=== PATIENT | female | born 1965 | race African-American/Black ===

== ENCOUNTER 2016-07-25 14:03 | Emergency (ER) | payer BC ==
[~2016-07-25] VITALS: Ht 160 cm; Wt 75.9 kg
[~2016-07-25 14:03] MED LIST: AFRI0.055; AUGM875T PO; MUCI600T PO; SUDA120T3 PO; high blood pressure
[2016-07-25 14:05] VITALS: BP 168/97; PULSE 97; RESP 15; TEMP 98; O2SAT 98
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
--- NOTE | 2016-07-25 17:06 | RADRPT ---
EXAM DATE/TIME: 07/25/2016 16:50 [place] COMPARISON: No previous studies available for comparison. INDICATIONS : Headaches with dizziness. RADIATION DOSE: 56.77 CTDIvol (mGy) MEDICAL HISTORY : Cardiovascular disease. Hypertension. SURGICAL HISTORY : None. ENCOUNTER: Initial ACUITY: 2 days PAIN SCALE: 5/10 LOCATION: Bilateral cranial TECHNIQUE: Multiple contiguous axial images were obtained of the head. Using automated exposure control and adj ustment of the mA and/or kV according to patient size, radiation dose was kept as low as reasonably a chievable to obtain optimal diagnostic quality images. FINDINGS: CEREBRUM: The ventricles are normal for age. No evidence of midline shift, mass lesion, hemorrhage or acute in farction. No extra-axial fluid collections are seen. POSTERIOR FOSSA: The cerebellum and brainstem are intact. The 4th ventricle is midline. The cerebellopontine angle i s unremarkable. EXTRACRANIAL: The visualized portion of the orbits is intact. SKULL: The calvaria is intact. No evidence of skull fracture. CONCLUSION: Normal examination. No evidence of acute infarct, hemorrhage, mass or edema. Fly Goncalves MD on July 25, 2016 at 17:03 Board Certified Radiologist. This report was verified electronically.
[2016-07-25 17:29] VITALS: BP 170/89; PULSE 79; PULSE 84; RESP 20; TEMP 98; O2SAT 97; O2SAT 98
[2016-07-25 17:31] LABS: AUTOMATED NEUTROPHIL # 1.7 TH/MM3 (1.8-7.7); BASOPHIL % 0.9 % (0.0-2.0); EOSINOPHIL # 0.2 TH/MM3 (0-0.4); EOSINOPHIL % 4.8 % (0.0-4.0); HEMATOCRIT 38.4 % (35.0-46.0); HEMO FLAGS DIFF FINAL; LYMPH % 52.6 % (9.0-44.0); LYMPHOCYTE # 2.6 TH/MM3 (1.0-4.8); MEAN CELL VOLUME 93.4 FL (80.0-100.0); MEAN CORPUSCULAR HEMOGLOBIN 32.6 PG (27.0-34.0); MEAN CORPUSCULAR HGB CONC 34.9 % (32.0-36.0); MONO % 7.9 % (0.0-8.0); NEUT % 33.8 % (16.0-70.0); PLATELET COUNT 234 TH/MM3 (150-450); RED BLOOD COUNT 4.11 MIL/MM3 (4.00-5.30); RED CELL DISTRIBUTION WIDTH 15.5 % (11.6-17.2); WHITE BLOOD COUNT 4.9 TH/MM3 (4.0-11.0)
[2016-07-25 17:38] VITALS: BP 170/89; PULSE 77; RESP 20; TEMP 98; O2SAT 98
[2016-07-25 17:46] LABS: BLOOD, URINE NEG (NEG); COMMENT (UR) CULT NOT INDICATED; CULTURE IF INDICATED CULT NOT INDICATED; GLUCOSE,URINE NEG (NEG); HYALINE CAST, URINE 1 /lpf (RARE); KETONE, URINE NEG (NEG); MUCUS URINE FEW /lpf (OCC); NITRITE,URINE NEG (NEG); PH, URINE 5.5 (5.0-8.5); SQUAMOUS EPITHELIAL CELL URINE 1 /hpf (0-5); URINE COLOR YELLOW (YELLW/STRAW)
[2016-07-25] MEDS ORDERED: MOBI15TA PO (18:54)
[2016-07-25 19:34] LABS: ANION GAP 5 MEQ/L (5-15); AST (GOT) 64 U/L (15-37); BICARBONATE 31.2 MEQ/L (21.0-32.0); BLOOD UREA NITROGEN 13 MG/DL (7-18); CHLORIDE 105 MEQ/L (98-107); GLOMERULAR FILTRATION RATE 115 ML/MIN (>89); SODIUM (NA) 141 MEQ/L (136-145)
--- NOTE | 2016-07-25 19:34 | PD ---
Data Data Last Documented VS Vital Signs Date Time Temp Pulse Resp B/P Pulse Ox O2 Delivery O2 Flow Rate FiO2 07/25/16 17:38 98.0 77 20 170/89 98 Room Air Orders Electrocardiogram (07/25/16 16:39) Complete Blood Count With Diff (07/25/16 16:39) Comprehensive Metabolic Panel (07/25/16 16:39) Urinalysis - C+S If Indicated (07/25/16 16:39) Ct Brain W/O Iv Contrast(Rout) (07/25/16 16:39) Iv Access Insert/Monitor (07/25/16 16:39) Ecg Monitoring (07/25/16 16:39) Oximetry (07/25/16 16:39) Acetaminophen (Tylenol) (07/25/16 20:00) Labs Laboratory Tests Test 07/25/16 07/25/16 17:15 19:10 White Blood Count 4.9 TH/MM3 Red Blood Count 4.11 MIL/MM3 Hemoglobin 13.4 GM/DL Hematocrit 38.4 % Mean Corpuscular Volume 93.4 FL Mean Corpuscular Hemoglobin 32.6 PG Mean Corpuscular Hemoglobin 34.9 % Concent Red Cell Distribution Width 15.5 % Platelet Count 234 TH/MM3 Mean Platelet Volume 8.9 FL Neutrophils (%) (Auto) 33.8 % Lymphocytes (%) (Auto) 52.6 % Monocytes (%) (Auto) 7.9 % Eosinophils (%) (Auto) 4.8 % Basophils (%) (Auto) 0.9 % Neutrophils # (Auto) 1.7 TH/MM3 Lymphocytes # (Auto) 2.6 TH/MM3 Monocytes # (Auto) 0.4 TH/MM3 Eosinophils # (Auto) 0.2 TH/MM3 Basophils # (Auto) 0.0 TH/MM3 CBC Comment DIFF FINAL Differential Comment Urine Color YELLOW Urine Turbidity CLEAR Urine pH 5.5 Urine Specific [place] 1.029 Urine Protein 30 mg/dL Urine Glucose (UA) NEG mg/dL Urine Ketones NEG mg/dL Urine Occult Blood NEG Urine Nitrite NEG Urine Bilirubin NEG Urine Urobilinogen 2.0 MG/DL Urine Leukocyte Esterase SMALL Urine RBC 1 /hpf Urine WBC 2 /hpf Urine Squamous Epithelial 1 /hpf Cells Urine Hyaline Casts 1 /lpf Urine Mucus FEW /lpf Microscopic Urinalysis Comment CULT NOT INDICATED Sodium Level 141 MEQ/L Potassium Level 4.2 MEQ/L Chloride Level 105 MEQ/L Carbon Dioxide Level 31.2 MEQ/L Anion Gap 5 MEQ/L Blood Urea Nitrogen 13 MG/DL Creatinine 0.65 MG/DL Estimat Glomerular Filtration 115 ML/MIN Rate Random Glucose 98 MG/DL Calcium Level 8.8 MG/DL Total Bilirubin 0.3 MG/DL Aspartate Amino Transf 64 U/L (AST/SGOT) Alanine Aminotransferase 79 U/L (ALT/SGPT) Alkaline Phosphatase 70 U/L Total Protein 8.1 GM/DL Albumin 3.7 GM/DL [facility] Medical Record Reviewed: Yes Supervised Visit with BENJIE: No Interpretation(s) Last Impressions Head CT 07/25/16 1639 Signed Impressions: Service Date/Time: Monday, July 25, 2016 16:50 - CONCLUSION: Normal examination. No evidence of acute infarct, hemorrhage, mass or edema. Fly Goncalves MD Narrative Course During the course of the patients emergency department visit, the patients history, examination, and differential diagnosis were reviewed with the patient. The patient had IV access obtained and blood work sent for analysis. The patient was placed on a tile layer supervisor with oximetry and blood pressure monitoring. An EKG was done on arrival. The patient's EKG shows a sinus rhythm heart rate of 79, no acute ST segment elevation or depression, T waves are noted to be inverted in V1, lead 3. The patient was initially evaluated by Dr. Choudhary. He requested that I review the patient's electrolytes. He anticipated that the patient will be able to be discharged home with a prescription for Motrin back. The patients laboratory studies were reviewed and remarkable for a CBC that shows a white count of 4.9, hemoglobin 13.4, platelets 234 with 52.6 lymphocytes suggesting a viral syndrome which Dr. Choudhary was concerned that the patient may be experiencing. Urinalysis is unremarkable. CMP is remarkable for slight elevation of her AST and ALT, ALT slightly elevated compared to the AST. A review of the electronic medical record reveals that this has been present previously. I see no evidence of a viral hepatitis panel being done previously. The patient will be given an outpatient lab slip to repeat the LFTs , due to a viral hepatitis panel and a sedimentation rate and to follow-up with a coatings inspector as her LFTs have increased compared to previously. Radiology studies were reviewed and remarkable for a CT scan of the brain shows no acute abnormality. The patient is resting comfortably and feels better, is alert and in no distress. The patients results and examination findings were discussed with the patient. The repeat examination is unremarkable and benign. The history, exam, diagnostic testing, and current condition do not suggest any significant pathology to warrant further testing, continued ED treatment, admission, or surgical evaluation at this point. The vital signs have been stable. The patient does not have uncontrollable pain, intractable vomiting, or other significant symptoms. The patient's condition is stable and appropriate for discharge. The patient will pursue further outpatient evaluation with a primary care physician or other designated or consulting physician as indicated in the discharge instructions. The patient expressed understanding and was agreeable with this plan. Diagnosis Primary Impression: Neuralgia Additional Impression: Elevated liver enzymes Referrals: Stephanie Turpin MD 1 week Primary Care Physician 3 days Patient Instructions: General Instructions Additional Instruction: Mobic as needed for pain. Follow-up with personal physician. Return if worse. The patient is noted on blood work to have elevated liver enzymes, AST and ALT. The patient is given an outpatient lab slip to repeat these in one week and follow-up with a coatings inspector. The patient was also instructed to have a viral hepatitis panel done in 1 week as well as a sedimentation rate. Med/Other Pt SpecificInfo: Prescription(s) given Scripts Meloxicam (Mobic)15 Mg Tab15 Mg PO DAILY #20 TAB Prov:Gene Choudhary MD 07/25/16 Disposition: 01 DISCHARGE HOME Condition: Stable Leila Muller MD Jul 25, 2016 19:33
[2016-07-25 19:35] LABS: POTASSIUM 4.2 MEQ/L (3.5-5.1)
[2016-07-25 19:47] LABS: ALKALINE PHOSPHATASE 70 U/L (45-117); ALT (GPT) 79 U/L (10-53); TOTAL BILIRUBIN ADULT 0.3 MG/DL (0.2-1.0)
[2016-07-25] MEDS ORDERED: ACETAMINOPHEN 325 MG TAB PO ONE (20:00)
--- NOTE | 2016-07-26 11:45 | EKG ---
Date Performed: 07/25/2016 Time Performed: 17:07:31 PTAGE: 51 years EKG: Sinus rhythm NORMAL ECG PREVIOUS TRACING : 02/28/2011 06.11 DOCTOR: Agustin Quiroz Interpretating Date/Time 07/26/2016 11:39:31
== END 2016-07-25 20:58 | disposition home or self-care (01) ==
LOC: NEPC 14:03
DX: M79.2 Neuralgia and neuritis, unspecified (principal); R74.8 Abnormal levels of other serum enzymes
CPT/HCPCS: 70450; 80053; 81001; 85025; 93005

== ENCOUNTER → 2016-07-26 | Outpatient (CLI) | payer BC ==
[~2016-07-26] MED LIST changes: +MOBI15TA PO
[2016-07-26 10:08] LABS: INDIRECT BILIRUBIN 0.3 MG/DL (0.0-0.8); TOTAL BILIRUBIN ADULT 0.4 MG/DL (0.2-1.0)
== END ==
LOC: CLAB 09:03
PROVIDERS: ATTEND Hospitalist
DX: E78.4 Other hyperlipidemia (principal)
CPT/HCPCS: 36415; 80074; 80076; 85652

== ENCOUNTER 2017-09-10 22:55 | Emergency (ER) | payer BC ==
[~2017-09-10] VITALS: Ht 167.6 cm; Wt 77.0 kg
[2017-09-10 23:04] VITALS: BP 152/99; PULSE 76; RESP 20; TEMP 98.4
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
== END 2017-09-10 23:41 | disposition home or self-care (01) ==
LOC: NEPD 22:55
DX: S80.12XA Contusion of left lower leg, initial encounter (principal); W01.0XXA Fall on same level from slipping, tripping and stumbling without subsequent striking against object, initial encounter
CPT/HCPCS: 99282

== ENCOUNTER 2017-09-28 17:38 | Emergency (ER) | payer BC ==
[~2017-09-28] VITALS: Ht 165.1 cm; Wt 77.0 kg
[2017-09-28 18:17] VITALS: BP 174/91; PULSE 76; RESP 19; TEMP 97.2; O2SAT 98
--- NOTE | 2017-09-28 20:07 | PD ---
HPI Chief Complaint: Pain: Acute or Chronic Time Seen by Provider: 19:58 Travel History International Travel<30 days: No Contact w/Intl Traveler<30days: No Traveled to known affect area: No History of Present Illness HPI 52-year-old black female presents emergency department with complaints of lower back and left leg pain [place]. She states that she had stepped on uneven ground into a hole causing her to fall onto her left knee. She was seen in the emergency department the day of the accident. She had x-rays performed and she was diagnosed with a contusion. She states that she has had persistent pain. She states the pain goes from her foot up into her left hip and left lower back. Pain is moderate. Worse with movement. Some relief with remaining still. She has not followed up with anyone since the accident. She only takes Goody powders on occasion. She denies any acute bowel or bladder changes. History Past Medical Histgory Narrative Medical Hypertension, hypothyroidism Tetanus Vaccination: > 5 Years Menopausal: No Hx Cancer: No Social History Alcohol Use: No Tobacco Use: No Allergies-Medications (Allergen,Severity, Reaction): Coded Allergies: No Known Allergies (Verified Adverse Reaction, Unknown, 09/10/17) Reported Meds & Prescriptions Reported Meds & Active Scripts Active No Active Prescriptions or Reported Medications Review of Systems General / Constitutional: No: Fever Eyes: No: Visual changes HENT: No: Headaches Cardiovascular: No: Chest Pain or Discomfort Respiratory: No: Shortness of Breath Gastrointestinal: No: Abdominal Pain Genitourinary: No: Dysuria Musculoskeletal: Positive: Arthralgias, Limited ROM, Cramping, Pain, No: Weakness Skin: No Rash Neurologic: No: Weakness, Paresthesia Psychiatric: No: Depression Endocrine: No: Polydipsia Hematologic/Lymphatic: No: Easy Bruising Physical Exam Narrative GENERAL: Well-developed, well-nourished in no apparent distress. Nontoxic appearing. HEAD: Normocephalic, atraumatic. EYES: Pupils equal round and reactive. Extraocular motions intact. No scleral icterus. No injection or drainage. ENT: Nose clear. Throat without erythema, tonsillar hypertrophy or exudate. Uvula midline. Airway patent. NECK: Trachea midline. Supple, nontender, moves head freely. No central bony tenderness or spasm. CARDIOVASCULAR: Regular rate and rhythm without murmurs, gallops, or rubs. RESPIRATORY: Clear to auscultation. Breath sounds equal bilaterally. No wheezes , rales, or rhonchi. GASTROINTESTINAL: Abdomen soft, non-tender, nondistended. No hepato-splenomegaly , or palpable masses. No guarding. EXTREMITIES: No clubbing, cyanosis, or edema. Examination of the left lower leg reveals no obvious bony tenderness. She has full range of motion. No instability. Neurovascular intact. She complains of myofascial tenderness along her left leg. The right lower leg as well as upper extremities are unremarkable. Neurovascular intact. BACK: No central bony tenderness to palpation of the dorsal lumbar spine. Patient complains of left paralumbar tenderness. Patient has full range of motion. She is able to heel and toe stand. No saddle anesthesia. Without deformity. No flank tenderness. NEUROLOGICAL: Awake, alert and oriented x 3 .Cranial nerves grossly intact. Motor and sensory grossly within normal limits. Normal speech. Data Data Last Documented VS Vital Signs Date Time Temp Pulse Resp B/P (MAP) Pulse Ox O2 Delivery O2 Flow Rate FiO2 09/28/17 18:17 97.2 76 19 174/91 (118) 98 MDM Medical Screen Exam Complete: Yes Emergency Medical Condition: No Differential Diagnosis MDM: High Differential diagnoses: Fracture, sprain, strain, dislocation, contusion, neurovascular injury Narrative Course A medical screening exam was performed: At the time of evaluation the presenting medical condition was determined not to be of an emergent nature. The patient was given the option of receiving additional care, but declined. Patient was given options for additional community resources from which to obtain care. The Patient Has Been advised to seek medical attention for their presenting complaint. The patient has been advised to return to the ER at any time if an emergent condition develops. Primary Impression: Encounter for medical screening examination Scripts No Active Prescriptions or Reported Meds Condition: Stable Mendez Veloz Sep 28, 2017 20:07
== END 2017-09-28 20:10 | disposition left against medical advice (07) ==
LOC: NEPD 17:38
DX: M54.5 Low back pain (principal); M79.605 Pain in left leg; E03.9 Hypothyroidism, unspecified; I10 Essential (primary) hypertension; W01.0XXD Fall on same level from slipping, tripping and stumbling without subsequent striking against object, subsequent encounter
CPT/HCPCS: 99281